=== PATIENT | male | born 1990 | race Caucasian/White ===

== ENCOUNTER 2024-03-30 21:41 | Emergency (ER) | payer OTHER ==
[~2024-03-30] VITALS: Ht 175.3 cm; Wt 90.9 kg
[2024-03-30 22:13] VITALS: BP 112/60; PULSE 66; RESP 16; TEMP 98; O2SAT 98
[2024-03-30] MEDS ORDERED: ACET-66 PO (23:57)
[2024-03-30] MEDS ORDERED: METH-659 PO (23:57)
[2024-03-30] MEDS ORDERED: IBUP-1554 PO (23:57)
[2024-03-31] MEDS: METHOCARBAMOL 500 MG TABLET PO ONE (00:01)
[2024-03-31] MEDS: IBUPROFEN 600 MG TABLET PO ONE (00:01)
== END 2024-03-31 00:07 | disposition home or self-care (01) ==
LOC: EMS 21:41
DX: S39.012A Strain of muscle, fascia and tendon of lower back, initial encounter (principal); V89.2XXA Person injured in unspecified motor-vehicle accident, traffic, initial encounter; Y93.89 Activity, other specified; Y92.410 Unspecified street and highway as the place of occurrence of the external cause; Y99.8 Other external cause status
CPT/HCPCS: 99283